=== PATIENT | male | born 1995 | race Caucasian/White ===

== ENCOUNTER 2021-06-27 00:14 | Emergency (ER) | payer OTHER ==
[2021-06-27 01:28] LABS: BILIRUBIN NEGATIVE (NEGATIVE); BLOOD NEGATIVE Ery/uL (NEGATIVE); CLARITY CLEAR (CLEAR); COLOR YELLOW (YELLOW); GLUCOSE (U) NORMAL (NORMAL); LEUKOCYTES NEGATIVE Leu/uL (NEGATIVE); NITRITE NEGATIVE (NEGATIVE); PROTEIN NEGATIVE (NEGATIVE); SPECIFIC GRAVITY 1.025 (1.001-1.030); UROBILINOGEN 0.2 mg/dL (0.2-1.0); pH 6.5 (5.0-9.0)
[2021-06-27] MEDS ORDERED: METRONIDAZOLE500 MG PO (02:17)
[2021-06-27] MEDS ORDERED: VIBRAMYCIN100 MG PO (02:17)
[2021-06-28 22:07] LABS: CHLAMYDIA TRACHOMATIS, NAA Negative (Negative); NEISSERIA GONORRHOEAE, NAA Negative (Negative)
== END 2021-06-27 02:25 | disposition home or self-care (01) ==
LOC: FER 00:14
PROVIDERS: Internal Medicine
DX: R30.0 Dysuria (principal); F17.210 Nicotine dependence, cigarettes, uncomplicated
CPT/HCPCS: 81003; 87491; 87591; J0696